=== PATIENT | male | born 1940 ===

== ENCOUNTER 2019-07-24 03:38 | Outpatient (CLI) | payer MEDICARE, BC | END 2019-07-24 23:59 | disposition home or self-care (01) | LOC: DIABETIC 03:38 | PROVIDERS: ATTEND Physician Assistant | DX: E11.9 Type 2 diabetes mellitus without complications (principal); Z79.84 Long term (current) use of oral hypoglycemic drugs | CPT/HCPCS: G0108 ==

== ENCOUNTER 2019-08-24 00:53 | Outpatient (CLI) | payer MEDICARE | END 2019-08-24 23:59 | disposition home or self-care (01) | LOC: DIABETIC 00:53 | PROVIDERS: ATTEND Family Medicine | DX: E11.9 Type 2 diabetes mellitus without complications (principal) | CPT/HCPCS: G0108 ==

== ENCOUNTER 2019-09-26 04:09 | Outpatient (CLI) | payer MEDICARE | END 2019-09-26 23:59 | disposition home or self-care (01) | LOC: DIABETIC 04:09 | PROVIDERS: ATTEND Family Medicine | DX: E11.9 Type 2 diabetes mellitus without complications (principal) | CPT/HCPCS: G0108 ==